=== PATIENT | male | born 1965 | race Caucasian/White ===

== ENCOUNTER 2018-06-20 09:14 | Inpatient (IN) | payer OTHER, MEDICAID ==
[2018-06-20] VITALS (7 sets, daily range): BP systolic 120–150; BP diastolic 51–93
[~2018-06-20] VITALS: Ht 175.2 cm; Wt 133.4 kg
--- NOTE | ~2018-06-20 | CON ---
[place], [place] REPORT OF CONSULTATION NAME: YARA LANDAVERDE [facility] #: [id number] UNIT #: [id number] ROOM: 420 DOCTOR: MIGDALIA MEHTA MDYOUSUF BIRTHDATE: [birth year] DOS: 06/21/2018 PULMONARY CONSULTATION AND EVALUATION CONSULTATION REQUESTED BY: Hospitalist services. REASON FOR CONSULTATION: Recurrent influenza infection and respiratory problems. HISTORY OF PRESENT ILLNESS: This is a 53-year-old white male patient who has developed symptoms of ____ with fever as well as significant confusional status at home prior to admission to the hospital about 24 hours or so. He was also complaining of symptoms of possibility of chills as well. He has been admitted in the hospital as he was noted positive for influenza A infection. The patient stated that he has driven his truck from home to come to the hospital, but could not recall how he got to the hospital when he drove from [place], [place] to [facility]. He has been noted with reduction of the respiratory symptom with improvement in the shortness of breath, but not noted completely resolved. The cough has been noted nonproductive. The patient denies symptoms of fever or chills at the present time of assessment. Still complaining of shortness of breath without the use of oxygen. REVIEW OF SYSTEMS: CONSTITUTIONAL SYMPTOMS: Fatigue and tiredness reported. Denies symptoms of fever or chills. EYES: Denies any burning, redness, or tenderness. EARS, NOSE, THROAT SYMPTOMS: Denies sore throat, hoarseness, otalgia, postnasal drainage or epistaxis. CARDIOVASCULAR: Denies anginal pain, edema, or pain in lower extremity. GASTROINTESTINAL: Denies dysphagia, nausea, vomiting, diarrhea, abdominal pain, hematemesis, melena, or hematochezia. SKIN: Denies abnormal lesions or rashes. CENTRAL NERVOUS SYSTEM: No dizziness, headache, diplopia, syncopal episodes. Remaining systems were reviewed. They were noted all negative. PAST MEDICAL HISTORY: 1. Noted for severe obesity. 2. The patient with intervertebral disk disease, back pain, reporting on disability and not working at this time. 3. Coronary artery disease. 4. Diagnosis of suspected obstructive sleep apnea disorder. The patient has been ordered the testing and the home sleep test not performed by the patient. 5. History of chronic depression. 6. Heavy nicotine dependence. PAST SURGICAL HISTORY: Cardiac catheterization and coronary stents insertion. SOCIAL HISTORY: The patient is , lives at home. He has 2 children. Denies history of alcohol use or illicit drugs. Tobacco use was noted 2 packs [place], [place] REPORT OF CONSULTATION NAME: YARA LANDAVERDE UNIT #: [id number] ROOM: 420 DOCTOR: YOUSUF VARGAS MD BIRTHDATE: [birth year] of cigarettes per day actively since teenager. FAMILY HISTORY: Father a couple of days ago from acute myocardial infarction. Mother also related to valvular heart disease. MEDICATIONS: The medications for the patient from home were listed with use of Xanax, aspirin, Lipitor, diclofenac, doxepin, lisinopril, metoprolol succinate, and Effient. CURRENT MEDICATIONS: Administered for this patient on this hospitalization were noted as use of Mucinex, vitamin D, Effient, metoprolol succinate, aspirin, lisinopril, citalopram, Lovenox for DVT prophylaxis, doxepin, Solu-Medrol 40 mg b.i.d., Lipitor, nicotine in the form of a Nicotrol inhaler, diclofenac, DuoNeb, Rocephin, and Zithromax. DRUG ALLERGY HISTORY: The patient was reported with no known drug allergies. PHYSICAL EXAMINATION: GENERAL: A 53-year-old white male patient currently noted sitting on his bed without acute distress this morning for assessment. Height is 5 feet 9 inches, weight of 294 pounds, BMI 43.9. VITAL SIGNS: The patient has normal temperature this morning, temperature on admission is 102.48 degree Fahrenheit, respiratory rate of 28. On admission, respiratory rate of 16, heart rate of 94-111, blood pressure 150/93-140/81. The pulse oxygen saturation recorded on room air at 84%, with 3 liters cannula 96% saturation. HEENT: Examination shows head was atraumatic. Eyes nonicterus. Severe obesity. Decreased posterior pharyngeal space, high tongue base crowding soft tissue structures. NECK: Supple and obese. CARDIOVASCULAR SYSTEM: S1, S2 heard. LUNGS: General reduction in breath sounds with expiratory wheezing, no crackles. ABDOMEN: Soft, obese, nontender. EXTREMITIES: No edema. MUSCULOSKELETAL: Cord deformity. VISIBLE SKIN: No lesions or rashes. CENTRAL NERVOUS SYSTEM: The patient noted fully awake, alert, oriented this afternoon at the time of assessment. Cranial nerves 2-12 intact. MUSCULOSKELETAL: Without acute deformities. LABORATORY DATA: CBC on admission, WBC count yesterday, WBC count normal, hemoglobin normal, platelet count was normal. The lactic acid yesterday noted on admission 3.1. Follow up 1.9. Influenza A was noted positive nasal washing with a negative influenza B. PT/PTT of the patient were noted as normal. CMP on admission, BUN of 13, creatinine 1.54, glucose 176. Remaining CBC was normal. CBC this morning still remains as normal. The BMP this morning, normal BUN and creatinine. Chest x-ray 1 view, which was done on was noted without any acute pulmonary infiltration. [place], [place] REPORT OF CONSULTATION NAME: YARA LANDAVERDE UNIT #: [id number] ROOM: 420 DOCTOR: YOUSUF VARGAS MD BIRTHDATE: [birth year] IMPRESSION: 1. The patient will be currently admitted to the hospital with acute hypoxic respiratory failure with acute sepsis. The patient with end-organ injury. The patient has acute kidney injury and confusional status with disorientation. 2. The patient with acute onset of chronic obstructive pulmonary disease exacerbation would be considered very likely, recurrent wheezing and respiratory failure. 3. Influenza A infection. The patient has bronchitis which is the cause of sepsis. 4. Morbid obesity. 5. Suspicion of obstructive sleep apnea disorder. 6. Resolution of acute kidney injury as well secondary to acute sepsis. PLAN OF MANAGEMENT: Discontinue antibiotics, which would not be needed, just treat the patient with antibiotic treatment for influenza A infection. Continue the Solu-Medrol. Titrate his oxygen supplementation to maintain pulse ox saturation 92% or greater. Titrate oxygen to maintain pulse ox 92% or greater. Other additional treatment changes will be made based on progression of illness. Home medication could be resumed including DVT prophylaxis, ambulation and ____. Other therapy, plan of management, care plan. The patient wishing to be discharged home tomorrow morning since his father just and the patient needs to make some arrangements for the of his father. Most likely, if the patient continued to show improvement in the respiratory status and other symptoms, he could be discharged home tomorrow morning, but this will be determined for the patient after further assessment. Obtain a chest x-ray, PA and lateral view, today due to any occult infiltration. Thank you for allowing me to participate in the care of this patient. YOUSUF NEGRON MD CM:CONSTR:REPORT OF CONSULTATION [id number] 06/22/18 0807 interface
--- NOTE | ~2018-06-20 | EKG ---
[place], [place] ELECTROCARDIOGRAM REPORT NAME: YARA LANDAVERDE UNIT #: [id number] ROOM: 420 DOCTOR: LONDON DRAFT REPORT BIRTHDATE: [birth year] [facility] Test Date: 2018-06-20 Test Time: 09:15:33 Pat Name: YARA LANDAVERDE Department: Room: 420 Gender: M Nursing Home Administrator: 15 : 1965 Requested By: SU OLIVEIRA Order Number: [id number] Reading MD: Boyd Keith MD Measurements Intervals [place] Rate: 112 P: 74 NC: 190 QRS: 99 QRSD: 91 T: 28 QT: 310 QTc: 423 Interpretive Statements Sinus tachycardia Borderline right axis deviation Baseline wander in lead(s) V4 Electronically Signed On 06-20-2018 17:03:52 PST by Boyd Keith MD CM:EKGRPT:ELECTROCARDIOGRAM REPORT [id number] SU OLIVEIRA EPIPHANY DRAFT REPORT SU OLIVEIRA
--- NOTE | ~2018-06-20 | PR ---
[place], [place] PROGRESS NOTE [id number] UNIT #: [id number] ROOM: 420 DOCTOR: MIGDALIA MEHTA MD,YOUSUF BIRTHDATE: [birth year] DOS: 06/22/2018 SUBJECTIVE: He has been noted reduction in shortness breath, which has been noted gradual. There were no symptoms of chest pain, fever or chills reported by the patient. The coughing has been subsiding. There were no symptoms of hemoptysis. Denies abdominal pain. OBJECTIVE: VITAL SIGNS: For the patient, which have been recorded showed normal temperature, respiratory rate 20, heart rate 57-76, blood pressure 124/61-108/57. Pulse oxygen saturation recorded on 2 liters nasal cannula 98% saturation at rest. HEENT: Examination shows head was atraumatic. Eyes nonicterus. NECK: Supple. CARDIOVASCULAR: S1, S2 is audible. LUNGS: The patient was noted without any wheeze or crackles at the present time. ABDOMEN: Soft, nontender. Bowel sounds present. EXTREMITIES: No acute change. IMPRESSION: 1. Acute hypoxemic respiratory failure, influenza infection, exacerbation of chronic obstructive pulmonary disease. 2. Chronic obesity. 3. Suspected obstructive sleep apnea disorder. PLAN OF MANAGEMENT: The patient could be discharged home on oral tapering prednisone and antibiotic for the influenza infection. Oxygen assessment need to be done prior to discharge. The patient has been noted with longstanding history of tobacco use. Abstinence of tobacco use. The patient was encouraged to counseling about tobacco cessation was done. YOUSUF NEGRON MD CM:PNTRANS [id number] YOUSUF MEHTA MD 06/23/18 0234 interface
[~2018-06-20 09:14] MED LIST: ANAPROX DS550 MG PO; CELEXA40 MG; CIPROFLOXACIN500 MG PO; COMPAZINE10 MG PO; FLAGYL500 MG PO; MOTRIN800 MG PO; NAPROSYN500 MG PO; ROBAXIN750 MG PO; TRAMADOL HCL50 MG PO; VICODIN 5/500 505 MG PO; VICODIN 500 MG-1 TAB PO; ZOLOFT100 MG PO
[2018-06-20 09:33] LABS: BASO # 0.1 10*3/uL (0.0-0.1); BASO % 0.5 % (0.0-1.0); EOS % 0.3 % (1.0-4.0); HEMOGLOBIN 15.5 g/dl (14.0-18.0); LYMPH # 0.6 10*3/uL (1.3-4.4); MEAN CELL VOLUME 93.6 fl (80.0-94.0); MEAN CORPUSCULAR HGB 30.9 pg (27.0-31.0); MEAN PLATELET VOLUME 10.2 fl (9.6-12.3); MONO # 1.2 10*3/uL (0.1-1.0); MONO % 13.3 % (3.0-9.0); NEUT # 7.2 10*3/uL (2.3-7.9); NEUT % 78.7 % (47.0-73.0); PLATELET COUNT AUTOMATED 210 10*3/uL (130-400); RED BLOOD COUNT 5.02 10*6/uL (4.50-5.90); RED CELL DISTRI WIDTH 14.3 % (0-14.5); WHITE BLOOD COUNT 9.2 10*3/uL (4.8-10.8)
[2018-06-20 09:54] LABS: ACT PARTIAL THROMBO TIME 25.5 SECONDS (20.8-31.5); ALBUMIN 3.6 gm/dl (3.1-4.5); ALKALINE PHOSPHATASE 129 U/L (45-117); BUN 13 mg/dl (7-24); CHLORIDE 99 mmol/L (98-107); CREATININE 1.54 mg/dL (0.70-1.30); INTERNATIONAL NORM RATIO 1.1 (2.0-3.5); POTASSIUM 3.8 mmol/L (3.5-5.1); SGOT/AST 21 IU/L (3-35); SGPT/ALT 20 U/L (12-78); SODIUM 136 mmol/L (136-145); TOTAL PROTEIN 7.4 gm/dL (6.4-8.2)
--- NOTE | 2018-06-20 09:55 | NUR ---
PT PLACED IN ISOLATION FOR INFLUENZA. GOWNS/GLOVES/MASK PLACED ON DOOR.
[2018-06-20 09:59] LABS: TROPONIN I < 0.015 ng/ml (<0.045)
--- NOTE | 2018-06-20 10:21 | NUR ---
MARIELLA GANT WHEAT CLEANER AWARE OF CRITICAL LACTIC ACID OF 3.1
--- NOTE | 2018-06-20 11:32 | NUR ---
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 PT STATES HE WILL PUT MONITOR BACK ON WHEN HE ARRIVES UPSTAIRS.
--- NOTE | 2018-06-20 12:00 | NUR ---
A 53, admitted to , under the services of NOE Ruiz DO with a diagnosis of FLU A, SEPSIS, SKYE. Chief complaint is SOB. Patient arrived via ambulatory from ER. Initial assessment completed. Vital signs taken and recorded. NOE RUIZ DO notified of admission to the unit. Orders received. See assessment for past medical history, medications and allergies. Patient and/or family oriented to unit. [facility] visitation policy reviewed. Clothing/patient valuable form completed. 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
[2018-06-20] MEDS ORDERED: LISINOPRIL20 MG PO (13:14)
[2018-06-20] MEDS ORDERED: ALPRAZOLAM0.5 M3 PO (13:14)
[2018-06-20] MEDS ORDERED: ASPIRIN ADULT L81 M1 PO (13:14)
[2018-06-20] MEDS ORDERED: ATORVASTATIN CA40 M1 PO (13:15)
[2018-06-20] MEDS ORDERED: METOPROLOL SUCC25 M2 PO (13:16)
[2018-06-20] MEDS ORDERED: PRASUGREL HCL10 MG PO (13:17)
[2018-06-20] MEDS ORDERED: ARTHROTEC50 MG PO (13:18)
[2018-06-20] MEDS ORDERED: DOXEPIN HCL25 MG PO (13:19)
--- NOTE | 2018-06-20 15:48 | NUR ---
pt complain of pain in back/anxiety. prn xanax and norco given
[2018-06-20 16:11] LABS: BILIRUBIN NEGATIVE (NEGATIVE); BLOOD 1+ (NEGATIVE); CLARITY CLEAR (CLEAR); COLOR YELLOW (YELLOW); GLUCOSE NEGATIVE (NEGATIVE); KETONE NEGATIVE (NEGATIVE); LEUKO ESTERASE NEGATIVE (NEGATIVE); NITRITE NEGATIVE (NEGATIVE); PH 5.5 (5.0-9.0); UROBILINOGEN 0.2 E.U./dl (0.2-1.0)
[2018-06-20 16:25] LABS: BACTERIA TRACE; WBC 0-2 wbc/hpf (0-5)
--- NOTE | 2018-06-20 16:40 | NUR ---
PT CONTINUES TO REFUSE TELE MONITOR, DR. CAMPBELL MADE AWARE, D/C TELE MONITOR DUE TO PATIENT CONTINUE TO REFUSE.
--- NOTE | 2018-06-20 16:55 | NUR ---
PT STATES PRN MEDICATIONS EFFECTIVE
[2018-06-21] VITALS: BP 140/81
--- NOTE | 2018-06-21 00:39 | NUR ---
PATIENT IS RESTING IN BED WITH EASY AND REGULAR RESPERS ON 4L O2 VIA NASAL CANNULA. ASSESSMENT IS COMPLETE TO THE BEST OF ABILITY D/T PATIENT BEING VERY RUDE AND VERBALLY AGGRESSIVE. CALL LIGHT IS WITHIN REACH.
[2018-06-21 06:39] LABS: BASO % 0.1 % (0.0-1.0); HEMATOCRIT 47.4 % (42.0-52.0); HEMOGLOBIN 14.7 g/dl (14.0-18.0); LYMPH # 0.4 10*3/uL (1.3-4.4); LYMPH % 4.4 % (27.0-41.0); MEAN CORPUSCULAR HGB 30.2 pg (27.0-31.0); MEAN PLATELET VOLUME 10.7 fl (9.6-12.3); MONO # 0.7 10*3/uL (0.1-1.0); MONO % 8.5 % (3.0-9.0); NEUT # 7.5 10*3/uL (2.3-7.9); NEUT % 86.3 % (47.0-73.0); PLATELET COUNT AUTOMATED 203 10*3/uL (130-400); RED BLOOD COUNT 4.86 10*6/uL (4.50-5.90); RED CELL DISTRI WIDTH 14.4 % (0-14.5); WHITE BLOOD COUNT 8.7 10*3/uL (4.8-10.8)
[2018-06-21 06:40] LABS: MEAN CELL VOLUME 97.5 fl (80.0-94.0)
[2018-06-21 06:49] LABS: BUN 15 mg/dl (7-24); CHLORIDE 103 mmol/L (98-107); CHOLESTEROL 108 mg/dL (<200); CREATININE 0.89 mg/dL (0.70-1.30); FREE T4 0.98 ng/dl (0.76-1.46); HDL CHOLESTEROL 37 mg/dl (40-60); LDL CHOLESTEROL 56 mg/dL (9-159); PHOSPHOROUS 3.2 mg/dL (2.5-4.9); POTASSIUM 4.5 mmol/L (3.5-5.1); SODIUM 140 mmol/L (136-145); TRIGLYCERIDES 74 mg/dl (<150); VLDL CHOLESTEROL 15 mg/dL (6-40)
[2018-06-21 06:56] LABS: THYROID STIM HORMONE (HS) 0.088 uIU/ml (0.358-4.75)
[2018-06-21 08:00] VITALS: BP 149/85
[2018-06-21 09:03] LABS: VITAMIN D, 25-HYDROXY 6.5 ng/mL (30-100)
--- NOTE | 2018-06-21 10:32 | NUR ---
PT STATES PAIN 4/10, CHEST WITH COUGHING INCREASES TO 7/10. NORCO GIVEN. PT REQUESTED ANXIETY MEDICATIONS, GIVEN. SEE MAR. IV FLUIDS D/C PER ORDER
[2018-06-21 12:00] VITALS: BP 127/70
--- NOTE | 2018-06-21 14:59 | NUR ---
DR. NEGRON NOTIFIED OF NEW CONSULT
[2018-06-21 16:30] VITALS: BP 131/77
--- NOTE | 2018-06-21 19:08 | NUR ---
PT COMPLAIN OF GENERALIZED PAIN FROM COUGHING, AND ANXIETY. PRN GIVEN. SEE MAR
[2018-06-21 20:00] VITALS: BP 133/57
[2018-06-22] VITALS: BP 108/57
[2018-06-22 06:43] LABS: BUN 23 mg/dl (7-24); CHLORIDE 105 mmol/L (98-107); CREATININE 1.05 mg/dL (0.70-1.30); LYMPH # 0.6 10*3/uL (1.3-4.4); LYMPH % 6.5 % (27.0-41.0); MEAN CELL VOLUME 97.8 fl (80.0-94.0); MEAN CORPUSCULAR HGB 30.4 pg (27.0-31.0); MEAN CORPUSCULAR HGB CONC 31.1 g/dl (33.0-37.0); MEAN PLATELET VOLUME 10.9 fl (9.6-12.3); MONO # 0.9 10*3/uL (0.1-1.0); MONO % 9.5 % (3.0-9.0); NEUT # 8.2 10*3/uL (2.3-7.9); NEUT % 83.6 % (47.0-73.0); PLATELET COUNT AUTOMATED 207 10*3/uL (130-400); POTASSIUM 4.7 mmol/L (3.5-5.1); RED CELL DISTRI WIDTH 14.8 % (0-14.5); SODIUM 142 mmol/L (136-145); WHITE BLOOD COUNT 9.8 10*3/uL (4.8-10.8)
[2018-06-22 08:00] VITALS: BP 124/62
--- NOTE | 2018-06-22 08:00 | NUR ---
IN BED AWAKE ALERT AND ORIENTED X3, [place], WHEEZING T/O. NO S/S OF DISTRESS. WILL CONT TO MONITOR. CALL LIGHT IN REACH. LABS REVIEWED.
--- NOTE | 2018-06-22 08:00 | NUR ---
PT AWAKE SITTING ON EDGE OF BED ORDERING BREAKFAST. HAS C/O PAIN ACROSS RIBS DUE TO COUGHING. BUT NO OTHER CONCERNS EXPRESSED AT THIS TIME. SAÚL.SHAYLA ARMENTA
--- NOTE | 2018-06-22 08:09 | NUR ---
DURING MORNING ASSESSMENT PT C/O PAIN RATING 6/10 ACROSS THE RIBS SAYING THAT COUGHING WAS THE CAUSE OF THE PAIN. PRN NARCO ADMINISTERED WILL REASSESS PAIN LEVEL. SAÚL.SHAYLA ARMENTA
--- NOTE | 2018-06-22 08:32 | NUR ---
REASSESSMENT OF PAIN: PATIENT STATES RELIEF OF PAIN. NOW RATED AT 0/10. WILL MONITOR FURTHER. SAÚL.SHAYLA ARMENTA
--- NOTE | 2018-06-22 09:00 | NUR ---
Carrier Associate in to talk to patient. Patient states lives at home with family. There are few steps in the home. Physician: shani clark Pharmacy: [facility] [place] Home health services: none Patient's level of ADLs: INDEPENDENT Patient has working utilities: all working DME: none Follow-up physician's appointment after d/c: will be made by hospitalist nurse director upon discharge Does patient want to access PORTAL?: no Discharge plan discussed with patient, patient lives at home is independet in adls and ambulation, patient states he will be going home when able and denies any home needs. NUVIA GREENE
--- NOTE | 2018-06-22 10:00 | NUR ---
ASSESSED FOR HOME O2 FOLLOWS: SAT 94% ON 2L/M @ REST SAT 85-88% RA @ REST BP 114/54 HR 83 SAT 94% @ REST WITH NC REAPPLIED SAT 88% WITH 2L/M NC APPLIED DURING AMBULATION AND WALKING IN PLACE SAT 88% WITH 3L/M NC APPLIED DURING AMBULATION AND WALKING IN PLACE SAT 93-94% WITH 4L/M NC APPLIED DURING WALKING IN PLACE. SAT RETURNING TO 94% WITH 2L/M DURING RECOVERY PT C/O SOB WHILE AMBULATING AND WALKING IN PLACE IN ROOM PT IN ISOLATION, ASSESSED IN ROOM POST BP 123/59 HR 82
--- NOTE | 2018-06-22 10:00 | NUR ---
PT IN BATHROOM UPON ENTERING WITHOUT OXYGEN. PT DISPLAYED SOB WITH AUDIBLE WHEEZING. EDUCATED PT TO KEEP O2 ON AT ALL TIMES TO DECREASE RISK OF SOB AND INJURY. PT VOICED UNDERSTANDING. SAÚL.SHAYLA ARMENTA
--- NOTE | 2018-06-22 10:25 | NUR ---
UPON ADMINISTERING SOLU-MEDROL, IV CATHETER CAME OUT OF ARM. FLOOR NURSE CONTACTED DOCTOR PATRICK TO NOTIFY. DR NGUYEN ORDERED TO LEAVE IV OUT. PT HAD NO COMPLAINTS AT THIS TIME. WILL CONTINUE TO MONITOR. [facility] AR[facility]A
--- NOTE | 2018-06-22 11:30 | NUR ---
PT RECIEVED ECHO AT BEDSIDE. TOLERATED PROCEDURE WELL. NO VOICED COMPLAINTS AT THIS TIME. SAÚL.SHAYLA ARMENTA
--- NOTE | 2018-06-22 11:40 | NUR ---
PER DR BERNA BECK D/C URINE CULTURE.
[2018-06-22 11:49] VITALS: BP 147/68
[2018-06-22] MEDS ORDERED: OXYGEN NAS (11:58)
[2018-06-22] MEDS ORDERED: VITAMIN D-32000 UNI1 PO (11:58)
[2018-06-22] MEDS ORDERED: PREDNISONE10 MG PO (11:58)
[2018-06-22] MEDS ORDERED: TAMIFLU 75MG CA75 MG PO (11:58)
[2018-06-22] MEDS ORDERED: DOXYCYCLINE100 M3 PO (11:58)
--- NOTE | 2018-06-22 12:00 | NUR ---
PT UPSET. HE STATED HE WAS LEAVING AND IS WALKING AROUND HIS ROOM WITHOUT HIS O2 ON. PT GRABBED STUFF AND LEFT TO GO TO ER BECAUSE HE STATED HIS DAUGHTER IS DOWN THERE. DR DYKES ON FLOOR AND AWARE.
--- NOTE | 2018-06-22 12:10 | NUR ---
PT LEFT FLOOR TO SEE FAMILY IN ER. SAÚL.SHAYLA ARMENTA
--- NOTE | 2018-06-22 12:20 | NUR ---
PT RETURNED TO FLOOR FROM VISITING FAMILY. CURRENTLY SITTING IN WHEELCHAIR AWAITING O2 SO D/C CAN BE FINISHED. PT EMOTIONALLY DISTRESSED DUE TO RECENT LOSS OF FATHER. CONSOLIDATED PT, BUT STILL UPSET. WILL CONTINUE TO MONITOR PT. SAÚL.SHAYLA ARMENTA
--- NOTE | 2018-06-22 12:30 | NUR ---
PT RETURNED TO FLOOR WITH HIS STUFF AND STATED HE WILL WAIT ON HIS OXYGEN TO GET HERE. PLACED PT BACK IN ROOM AND PLACED BACK ON HIS OXYGEN. PT REFUSED TO HAVE ANY VITALS DONE AND ASKED TO NOT BE SPOKEN TO AT THIS TIME. WILL CONT TO MONITOR.
--- NOTE | 2018-06-22 13:02 | NUR ---
case management talked with respiratory therapy, patient has qualified for home oxygen, respiratory has contacted [facility] and are currently waiting for oxygen script to fax to [facility]. [facility] will then bring patient's oxygen, case management will follow
--- NOTE | 2018-06-22 13:43 | NUR ---
DISCHARGED AT THIS TIME. VERBALIZED UNDERSTANDING OF DISCHARGE INSTRUCTIONS. OXYGEN [employer] BROUGHT PORTABLE O2 TANK.
== END 2018-06-22 13:43 | disposition home or self-care (01) | DRG 871 ==
LOC: ED 09:14 → EDHOLD 10:19 → 4E 10:19
PROVIDERS: Internal Medicine; Nurse Practitioner Family; ADMIT Internal Medicine
DX: A41.9 Sepsis, unspecified organism (principal); N17.0 Acute kidney failure with tubular necrosis; E43 Unspecified severe protein-calorie malnutrition; G93.41 Metabolic encephalopathy; J96.01 Acute respiratory failure with hypoxia; J10.00 Influenza due to other identified influenza virus with unspecified type of pneumonia; J44.1 Chronic obstructive pulmonary disease with (acute) exacerbation; Z68.41 Body mass index [BMI] 40.0-44.9, adult; R65.20 Severe sepsis without septic shock; D72.810 Lymphocytopenia; R73.9 Hyperglycemia, unspecified; R74.8 Abnormal levels of other serum enzymes; F41.9 Anxiety disorder, unspecified; E66.01 Morbid (severe) obesity due to excess calories; F32.9 Major depressive disorder, single episode, unspecified; I10 Essential (primary) hypertension; I25.10 Atherosclerotic heart disease of native coronary artery without angina pectoris; E78.5 Hyperlipidemia, unspecified; G89.29 Other chronic pain; Z95.5 Presence of coronary angioplasty implant and graft; Z87.442 Personal history of urinary calculi; Z82.2 Family history of deafness and hearing loss; Z79.82 Long term (current) use of aspirin; Z71.6 Tobacco abuse counseling; Z79.899 Other long term (current) drug therapy; Z72.0 Tobacco use